=== PATIENT | male | born 2005 | race African-American/Black ===

== ENCOUNTER 2025-06-06 08:48 | Emergency (ER) | payer OTHER ==
[~2025-06-06] VITALS: Ht 193 cm; Wt 163.3 kg
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
[2025-06-06 10:52] VITALS: BP 124/70; PULSE 68; RESP 14; TEMP 98; O2SAT 98
== END 2025-06-06 10:41 | disposition home or self-care (01) ==
LOC: ER 08:50
DX: S00.03XA Contusion of scalp, initial encounter (principal); S80.212A Abrasion, left knee, initial encounter; S80.211A Abrasion, right knee, initial encounter; S09.8XXA Other specified injuries of head, initial encounter; V49.3XXA Car occupant (driver) (passenger) injured in unspecified nontraffic accident, initial encounter; Y92.488 Other paved roadways as the place of occurrence of the external cause; Y99.8 Other external cause status
CPT/HCPCS: 70450; 99284; A6258; A6449